=== PATIENT | female | born 1950 ===

== ENCOUNTER 2020-03-22 12:38 | Inpatient (IN) | payer OTHER ==
[~2020-03-22] VITALS: Ht 160 cm; Wt 58.6 kg
[2020-03-22 13:32] LABS: BASOPHILS % (AUTO) 1 % (0-1); EOSINOPHILS % (AUTO) 1 % (1-7); LYMPHOCYTES % (AUTO) 35 % (22-44); MEAN CORPUSCULAR HEMOGLOBIN 31.1 pg (27.0-34.8); MEAN CORPUSCULAR HGB CONC 33.9 g/dL (32.4-35.8); MEAN PLATELET VOLUME 10.4 fL (7.4-10.4); MONOCYTES % (AUTO) 9 % (2-9); NEUTROPHILS % (AUTO) 54 % (42-75); PLATELET COUNT 385 x10^3/uL (130-400); RED BLOOD COUNT 4.34 x10^6/uL (3.82-5.3); RED CELL DISTRIBUTION WIDTH 14.1 % (9.6-15.2)
[2020-03-22 13:42] LABS: ALANINE AMINOTRANSFERASE 42 U/L (12-78); ALBUMIN 3.2 g/dL (3.4-5.0); ANION GAP 8 mmol/L (5-15); CALCIUM 8.9 mg/dL (8.5-10.1); CHLORIDE 105 mmol/L (98-107)
[2020-03-22 13:44] LABS: MD NO
[2020-03-22 13:46] LABS: ALKALINE PHOSPHATASE 128 U/L (45-117); BILIRUBIN,TOTAL 0.6 mg/dL (0.2-1.0); TOTAL PROTEIN 7.5 g/dL (6.4-8.2); TROPONIN I < 0.015 ng/mL (0.000-0.045)
--- NOTE | 2020-03-22 15:02 | NUR ---
Break RN note: Pt resting in bed, NADN, denies needs.
[2020-03-22] MEDS ORDERED: CEFTRIAXONE PMX 1GM/50ML 50 ML ONE (15:27)
[2020-03-22] MEDS ORDERED: CEFTRIAXONE PMX 1GM/50ML 50 ML IVPB ONE (15:30)
[2020-03-22] MEDS ORDERED: AZITHROMYCIN 500 MG in SODIUM CHLORIDE 0.9% 250 ML IVPB ONE (15:30)
[2020-03-22] MEDS ORDERED: PLEASE ENTER ALLERGIES MC SCH (15:30)
[2020-03-22 15:45] LABS: MICROSCOPIC AUTO
[2020-03-22 16:38] LABS: D-DIMER (DIC) 4.31 ug/mlFEU (0.00-0.52); PROTIME 10.5 Seconds (9.6-11.5)
[2020-03-22 17:02] LABS: C-REACTIVE PROTEIN, QUANT 2.86 mg/dL (0.02-0.49)
[2020-03-22] MEDS ORDERED: OMNIPAQUE 350 MG/ML, 100ML BOTTLE ONE (17:28)
[2020-03-22] MEDS ORDERED: SODIUM CHLORIDE FLUSH 10ML SYR IVF PRN (19:00)
[2020-03-22] MEDS ORDERED: METF500T17 PO (19:53)
[2020-03-22] MEDS ORDERED: SIMV10TA18 PO (19:54)
[2020-03-22] MEDS ORDERED: GLIP5TAB10 PO (19:54)
--- NOTE | 2020-03-22 20:58 | NUR ---
PT BIB [facility]LI[facility] TODAY FOR CP/SOB, BROUGHT IN FROM [facility], PT IS COVID+ FROM LOCAL TESTING SIGHT. PT NAD, RESTING IN [place], DENIES ADDITIONAL QUESTIONS OR NEEDS. PT CALL LIGHT ON LAP, BED IN LOWEST, WCTM. WAITING FOR ADMIT BED.
--- NOTE | 2020-03-22 21:02 | NUR ---
BEDSIDE REPORT RECEIVED FROM JASMIN DELGADO. PT CARE TRANSFERRED AT THIS TIME.
[2020-03-22] MEDS ORDERED: PROMETHAZINE 25 MG/ML, 1ML IM PRN (21:30)
[2020-03-22] MEDS ORDERED: POTASSIUM CHLORIDE 20 MEQ TAB.ER.PRT PO ONE (21:30)
[2020-03-22] MEDS ORDERED: BISACODYL 10 MG SUPP PR PRN (21:30)
[2020-03-22] MEDS ORDERED: morphine SULFATE 10 MG/ML, 1ML IVPush PRN (21:30)
[2020-03-22] MEDS ORDERED: ACETAMINOPHEN 325 MG TABLET PO PRN (21:30)
[2020-03-22] MEDS ORDERED: ONDANSETRON ODT 4 MG PO PRN (21:30)
[2020-03-22] MEDS ORDERED: POLYETHYLENE GLYCOL 17 GM PACKET PO PRN (21:30)
[2020-03-22] MEDS ORDERED: OXYcodone IR 5MG TABLET PO PRN (21:30)
[2020-03-22] MEDS ORDERED: LABETALOL 5MG/ML, 20ML IVPush PRN (21:30)
[2020-03-22] MEDS ORDERED: ONDANSETRON 2MG/ML, 2ML IVPush PRN (21:30)
[2020-03-22] MEDS ORDERED: DOCUSATE 100 MG CAPSULE PO PRN (21:30)
--- NOTE | 2020-03-22 22:01 | NUR ---
pt provided sandwich and water per request, pt nad, sitting up eating, appears comfortable, denies additional needs at this time. pt questions answered via compensation and benefits administrator. pt bed in [facility], call light on lap, [facility]. report called to jenna smith, pt care to be transferred upon arrival to the floor
[2020-03-22] MEDS: ASCORBIC ACID 500 MG TABLET PO SCH (23:23)
[2020-03-22] MEDS: SIMVASTATIN 10 MG TABLET PO SCH (23:23)
[2020-03-22] MEDS: metFORMIN 500 MG TABLET PO SCH (23:24)
[2020-03-22] MEDS: DEXAMETHASONE 4 MG/ML, 1ML IVPush SCH (23:25)
[2020-03-22] MEDS: ENOXAPARIN 30 MG/0.3 ML SQ SCH (23:26)
[2020-03-22 23:41] VITALS: BP 126/70
[2020-03-23 01:08] VITALS: BP 134/76
[2020-03-23 05:42] LABS: ALANINE AMINOTRANSFERASE 43 U/L (12-78); ALBUMIN 2.7 g/dL (3.4-5.0); ANION GAP 6 mmol/L (5-15); CALCIUM 8.8 mg/dL (8.5-10.1); CHLORIDE 107 mmol/L (98-107); CHOLESTEROL, TOTAL 156 mg/dL (140-239)
[2020-03-23 05:50] LABS: ALKALINE PHOSPHATASE 123 U/L (45-117); BASOPHILS % (AUTO) 1 % (0-1); BILIRUBIN,TOTAL 0.4 mg/dL (0.2-1.0); CHOL/HDL RATIO 3.7; EOSINOPHILS % (AUTO) 0 % (1-7); HDL CHOL % 27 % (28-40); HDL CHOLESTEROL (DIRECT) 42 mg/dL (40-60); LDL CHOLESTEROL,CALCULATED 95 mg/dL (54-169); LDL/HDL RATIO 2.3 (0.5-3.0); LYMPHOCYTES % (AUTO) 20 % (22-44); MEAN CORPUSCULAR HEMOGLOBIN 30.9 pg (27.0-34.8); MEAN CORPUSCULAR HGB CONC 33.5 g/dL (32.4-35.8); MEAN PLATELET VOLUME 11.3 fL (7.4-10.4); MONOCYTES % (AUTO) 3 % (2-9); NEUTROPHILS % (AUTO) 76 % (42-75); PLATELET COUNT 375 x10^3/uL (130-400); RED CELL DISTRIBUTION WIDTH 14.1 % (9.6-15.2); TOTAL PROTEIN 6.5 g/dL (6.4-8.2); TRIGLYCERIDES 95 mg/dL (50-200); VLDL CHOLESTEROL 19 mg/dL (0-25)
[2020-03-23 06:23] LABS: MD SCAN
[2020-03-23] MEDS: INSULIN LISPRO 100 UNITS/ML, PEN SQ-INSULIN SCH ×4 (07:00→21:33)
[2020-03-23 07:53] VITALS: BP 123/73
[2020-03-23] MEDS: ZINC SULFATE 220 MG CAPSULE PO SCH (09:13)
[2020-03-23] MEDS: metFORMIN 500 MG TABLET PO SCH ×2 (09:13→17:39)
[2020-03-23] MEDS: DEXAMETHASONE 4 MG/ML, 1ML IVPush SCH (09:14)
[2020-03-23] MEDS: ENOXAPARIN 30 MG/0.3 ML SQ SCH ×2 (09:14→21:25)
[2020-03-23] MEDS: ASCORBIC ACID 500 MG TABLET PO SCH ×3 (09:14→21:24)
[2020-03-23 12:32] VITALS: BP 128/76
[2020-03-23] MEDS: INSULIN GLARGINE 100 UNITS/ML, PEN SQ-INSULIN SCH ×2 (14:47→21:33)
[2020-03-23] MEDS ORDERED: AZITHROMYCIN 500 MG in SODIUM CHLORIDE 0.9% 250 ML IV SCH (17:00)
[2020-03-23] MEDS ORDERED: CEFTRIAXONE PMX 2GM/50ML 50 ML IVPB SCH (17:00)
[2020-03-23 18:56] VITALS: BP 122/76
[2020-03-23] MEDS: SIMVASTATIN 10 MG TABLET PO SCH (21:24)
[2020-03-24 00:58] VITALS: BP 113/70
[2020-03-24] MEDS: INSULIN LISPRO 100 UNITS/ML, PEN SQ-INSULIN SCH ×2 (07:00→11:39)
[2020-03-24] MEDS: ENOXAPARIN 30 MG/0.3 ML SQ SCH (08:04)
[2020-03-24] MEDS: metFORMIN 500 MG TABLET PO SCH (08:05)
[2020-03-24] MEDS: ASCORBIC ACID 500 MG TABLET PO SCH (08:05)
[2020-03-24] MEDS: DEXAMETHASONE 4 MG/ML, 1ML IVPush SCH (08:05)
[2020-03-24] MEDS: ZINC SULFATE 220 MG CAPSULE PO SCH (08:05)
[2020-03-24] MEDS: INSULIN GLARGINE 100 UNITS/ML, PEN SQ-INSULIN SCH (08:08)
[2020-03-24 08:13] VITALS: BP 131/82
[2020-03-24] MEDS ORDERED: CHOL10003 PO (10:01)
[2020-03-24] MEDS ORDERED: CEFD300C37 PO (10:01)
[2020-03-24] MEDS ORDERED: METF1000 PO (10:01)
[2020-03-24] MEDS ORDERED: ZINC220C7 PO (10:01)
[2020-03-24] MEDS ORDERED: ASCO1500 PO (10:01)
[2020-03-24] MEDS ORDERED: GLIP10TA13 PO (10:01)
[2020-03-24] MEDS ORDERED: AZIT500T PO (10:01)
[2020-03-24 15:41] VITALS: BP 146/84
== END 2020-03-24 16:32 | disposition home or self-care (01) | DRG 177 ==
LOC: ED 21:25 → EDIP 21:40 → 3N 22:42
PROVIDERS: ADMIT Internal Medicine; ATTEND Hospitalist
DX: U07.1 COVID-19 (principal); E43 Unspecified severe protein-calorie malnutrition; J12.89 Other viral pneumonia; J96.01 Acute respiratory failure with hypoxia; N39.0 Urinary tract infection, site not specified; E78.5 Hyperlipidemia, unspecified; E87.6 Hypokalemia; E11.9 Type 2 diabetes mellitus without complications; Z68.22 Body mass index [BMI] 22.0-22.9, adult; Z79.4 Long term (current) use of insulin
CPT/HCPCS: 36415; 71045; 71275; 80053; 80061; 81001; 82728; 82962; 83036; 83605; 83615; 83690; 83735; 84145; 84443; 84484; 85025; 85049; 85379; 85384; 85610; 85730; 86140; 87040; 87086; 93005; G0378; J0456; J0696; J1100; J1650; Q9967; J1815; J7050